=== PATIENT | male | born 2000 | race African-American/Black ===

== ENCOUNTER 2024-08-16 09:32 | Emergency (ER) | payer SELFPAY ==
[2024-08-16 09:38] VITALS: BP 113/80; PULSE 86; TEMP 38.4; O2SAT 97; BMI 27.0
--- NOTE | 2024-08-16 09:59 | ED_ITS ---
HPI - URI/Sore Throat General: Chief Complaint: Upper Respiratory Infection Stated Complaint: sore throat, fever,n,v Time Seen by Provider: 08/16/24 09:52 Source: patient Mode of arrival: ambulatory Limitations: no limitations History of Present Illness: Patient is a 24-year-old male presents to ED today with complaint of subjective fevers, chills, body aches, sore throat, postnasal drainage, congestion, and cough with post-tussive vomiting x 3 days. Denies sick contacts. MD elicited complaint: fever, cough, sore throat and nasal congestion Onset (ago): day(s) Consistency: constant Severity: moderate Description of mucous: clear Able to tolerate fluids by mouth: Yes Exacerbating factors: nothing Relieving factors: nothing Associated symptoms: Reports chills, fever(s), nasal congestion and vomiting (post-tussive vomiting); Deny abdominal pain, chest pain, diarrhea, ear or mastoid pain, headache(s) or nausea Treatments prior to arrival: none Related Data Home Medications ?Medication ?Instructions ?Recorded ?Confirmed No Known Home Medications 08/16/2408/07 Allergies Allergy/AdvReac Type Severity Reaction Status Date / Time No Known Allergies Allergy Verified 08/16/24 09:42 Review of Systems Const: Reports: fever(s), chills and body aches Eyes: Denies: change in vision, photophobia, eye discharge or eye redness ENMT: Reports: throat pain, odynophagia and nasal congestion; Denies: dental pain or ear or mastoid pain Card: Denies: chest pain Resp: Reports: non-productive cough and chest congestion; Denies: dyspnea GI: Reports: vomiting (post-tussive vomiting); Denies: abdominal pain, nausea or diarrhea : Denies: flank pain or dysuria Musc: Denies: neck pain, back pain, extremity pain, joint swelling or joint redness Skin/Breast: Denies: rash Neuro: Denies: headache(s), numbness in extremities, weakness in extremities or sensory changes Physical Exam Const: COMMON NORMALS: no acute distress, average body habitus, patient oriented x3, no limitations, healthy appearing, alert and well nourished GENERAL APPEARANCE: cooperative ORIENTATION/CONSCIOUSNESS: Yes awake, Yes oriented to person, Yes oriented to place and Yes oriented to time HENMT: COMMON NORMALS: normocephalic, atraumatic, hearing grossly normal bilaterally, external ears normal, EAC's normal, TM's normal bilaterally, Normal external nose present, Normal nasal mucous membranes and turbinates present, moist oral mucous membranes and oropharynx normal HEAD & SCALP: normal to inspection, normocephalic and atraumatic FACE & SINUS: normal facial exam and sinuses nontender NOSE: Normal external nose present and Normal nasal mucous membranes and turbinates present EXTERNAL EAR: Yes external ears normal EXTERNAL AUDITORY CANAL: EAC's normal TYMPANIC MEMBRANE: TM's normal bilaterally MOUTH: Normal oral and palatal mucosa present and lip normal THROAT: posterior oropharynx normal, tonsils normal and uvula midline Eye: COMMON NORMALS: Equal, round and reactive pupils present, EOMs intact bilaterally and conjunctivae normal CONJUNCTIVA: Yes conjunctivae normal PUPIL: Yes Equal, round and reactive pupils present Neck/C-Spine: COMMON NORMALS: no lymphadenopathy Resp: COMMON NORMALS: normal respiratory effort and clear to auscultation bilaterally AUSCULTATION: clear to auscultation bilaterally Cardio: COMMON NORMALS: regular rate and regular rhythm RATE: regular rate RHYTHM: regular rhythm GI: COMMON NORMALS: Normal to inspection, nondistended, normoactive bowel sounds present, Soft to palpation and non-tender PALPATION: Yes Soft to palpation Extremity: GENERAL: Yes normal exam except as noted Neuro: COMMON NORMALS: patient oriented x3 SENSORIUM/ORIENTATION: Yes alert, Yes oriented to person, Yes oriented to place and Yes oriented to time Skin: COMMON NORMALS: no rashes or lesions noted GENERAL SKIN EXAM: no rashes or lesions noted Course Vital Signs: Vital signs: Vital Signs Temperature 101.1 F H 08/16/24 09:38 Pulse Rate 86 08/16/24 09:38 Blood Pressure 113/80 08/16/24 09:38 Pulse Oximetry 97 08/16/24 09:38 Oxygen Delivery Me thod Room Air 08/16/24 09:38 MDM - URI/Sore Throat Medical Decision Making Patient is a 24-year-old male here for flu like symptoms. He is positive for Influenza A. Patient clinically appears in no acute distress. He was febrile upon presentation. Symptoms have been present for 3 days. He is outside the window for Tamiflu. We discussed conservative therapies at home. Return precautions discussed. Differential Diagnosis Likely upper respiratory infection, viral infection and influenza Medical Records I reviewed the patient's medical records. Lab Data I reviewed the patient's lab results. Laboratory Results Coronavirus (PCR) Negative (Negative) 08/16/24 09:54 Influenza A (PCR) Positive (Negative) 08/16/24 09:54 Influenza Type B (PCR) Negative (Negative) 08/16/24 09:54 RSV (PCR) Negative (Negative) 08/16/24 09:54 No radiology studies performed this visit Discharge Plan Discharge Patient Disposition: Home Clinical Impression: Influenza A Condition: Stable Prescriptions: No Action No Known Home Medications Discharge Orders: Discharge ED (Routine); Ordered 08/16/24 Ordered By: Pratima Sethi Patient Instructions: Influenza (DC) Print Language: [place]er Coding Level of Care Code ED Injection Molding Operator for Maribel Yu
[2024-08-16] MEDS: acetaminophen 500 mg Tablet 1000 MG PO (10:35)
[2024-08-16 10:43] LABS: Covid PCR NEGATIVE (Negative); Influenza A POSITIVE (Negative); Influenza B NEGATIVE (Negative); Respiratory Syncytial Virus Ce NEGATIVE (Negative)
[2024-08-16 11:16] VITALS: BP 131/74; PULSE 82; RESP 16; O2SAT 98
== END 2024-08-16 11:13 | disposition home or self-care (01) ==
PROVIDERS: Emergency Provider Physician Assistant
DX: J10.1 Influenza due to other identified influenza virus with other respiratory manifestations (principal); Z11.52 Encounter for screening for COVID-19
CPT/HCPCS: 87637; 99283